=== PATIENT | male | born 1995 | race Caucasian/White ===

== ENCOUNTER 2020-04-02 21:04 | Emergency (ER) | payer OTHER, SELFPAY ==
[2020-04-02 21:08] VITALS: BP 115/79; PULSE 100; RESP 15; TEMP 36.6; O2SAT 98
--- NOTE | 2020-04-02 21:40 | ED.GENADULT ---
HPI - General Adult General Chief complaint: Wound/Laceration Stated complaint: sliced finger Time Seen by Provider: 04/02/20 21:06 Source: patient Mode of arrival: ambulatory Limitations: no limitations History of Present Illness HPI narrative: Patient is a 24-year-old male who presents for evaluation of right ring finger pain that occurred after cutting himself with a sharp edge patient notes aching pain patient is unsure as to his last tetanus shot. Patient notes mild pain denies any radiation of pain or other complaints Related Data Allergies Allergy/AdvReac Type Severity Reaction Status Date / Time No Known Allergies Allergy Verified 04/02/20 21:11 Review of Systems Review of Systems: Narrative: CONSTITUTIONAL: Denies fever, chills, or sweats. SKIN: Positive for laceration MUSCULOSKELETAL: Positive for finger pain NEUROLOGIC: Denies numbness, or weakness. PMFSH Social History Social History (Updated 04/02/20 @ 21:42 by Mychal Odell PA-C) Smoking status: Never smoker Exam Narrative: Exam Narrative: GENERAL: Well-appearing, well-nourished, and in no acute distress. HEAD: Normocephalic, atraumatic. EYES: PERRLA and EOMI. ENT: Nares clear, no rhinorrhea or epistaxis. Mucous membranes moist. EXTREMITIES: Normal range of motion. No edema. SKIN: Warm, dry, no rash. Half centimeter superficial flap laceration over the PIP joint of the right index finger NEURO: No focal deficits. Alert and oriented x3. Neurovascularly intact PSYCH: Normal mood and affect. Course Course Emergency Course: Patient in the room in no distress aware of case findings treatment plan and diagnosis Vital Signs Vital signs: Vital Signs Temperature 97.9 F 04/02/20 21:08 Pulse Rate 100 04/02/20 21:08 Respiratory Rate 15 04/02/20 21:08 Blood Pressure 115/79 04/02/20 21:08 Pulse Oximetry 98 04/02/20 21:08 Temperature 97.9 F 04/02/20 21:08 Pulse Rate 100 04/02/20 21:08 Respiratory Rate 15 04/02/20 21:08 Blood Pressure 115/79 04/02/20 21:08 Pulse Oximetry 98 04/02/20 21:08 Procedures Laceration Laceration 1: Date: 04/02/20 Time: 21:42 Site: upper extremity Size (cm): 0.5 Description: flap Depth: simple, single layer Local Anesthetic: none Pre-repair: wound explored and irrigated ====== Skin Level ====== Skin layer closed with: nathan Number of sutures: 1 ====== Subcutaneous Layer ====== ====== Muscle Layer ====== ====== Tendon Layer ====== Medical Decision Making MDM Narrative Medical decision making narrative: Patients injury or pain is consistent with musculoskeletal etiology. No signs of neurological or vascular compromise on exam. Compartments and tisues are soft without signs of compartment syndrome. Pain is felt appropriate for further evaluation on an outpatient basis. Vital Signs Vital Signs: Vital Signs Temperature 97.9 F 04/02/20 21:08 Pulse Rate 100 04/02/20 21:08 Respiratory Rate 15 04/02/20 21:08 Blood Pressure 115/79 04/02/20 21:08 Pulse Oximetry 98 04/02/20 21:08 Temperature 97.9 F 04/02/20 21:08 Pulse Rate 100 04/02/20 21:08 Respiratory Rate 15 04/02/20 21:08 Blood Pressure 115/79 04/02/20 21:08 Pulse Oximetry 98 04/02/20 21:08 Discharge Plan Discharge Clinical Impression: Laceration Patient Disposition: Home, Self-Care Condition: Stable Instructions: Antibiotic Form, Laceration (ED) Additional Instructions: Keep wound clean and dry. Do not soak, take baths, or swim until wound is completely healed. If any signs of infection such as redness, swelling, increasing pain, drainage of purulent discharge, streaks up your extremity develop, seek medical attention immediately. Followup with your primary care provider in [7] days for suture removal. [] Follow-up/Referrals: PHYSICIAN,CUPOLA OPERATOR INSULATION [Primary Care Provider] - Dionisio
[2020-04-02] MEDS: TETANUS,DIPHTHERIA,AC PERTUSSIS ADULT (0.5 ML) BOOSTRIX IM (21:43)
[2020-04-02 22:13] VITALS: PULSE 74; RESP 16; O2SAT 100
== END 2020-04-02 21:47 | disposition home or self-care (01) ==
PROVIDERS: Emergency Provider Emergency Medicine
DX: S61.214A Laceration without foreign body of right ring finger without damage to nail, initial encounter (principal); W26.9XXA Contact with unspecified sharp object(s), initial encounter; Z23 Encounter for immunization
CPT/HCPCS: 12001; 90471; 90715; 99282

== ENCOUNTER 2020-11-29 12:27 | Outpatient (CLI) | payer OTHER, SELFPAY ==
[2020-11-29 12:57] LABS: Basophils Absolute Auto 0.1 K/mm3 (0.0-0.1); Basophils Percent Auto 1.5 % (0.2-1.2); Eosinophils Absolute Auto 0.3 K/mm3 (0-0.3); Eosinophils Percent Auto 7.5 % (0-4.4); Hematocrit 43.9 % (42.0-52.0); Hemoglobin 15.5 g/dL (14.0-18.0); Immature Granulocyte Absolute 0.01 K/mm3 (0.00-0.031); Immature Granulocyte Percent A 0.2 % (0-0.5); Lymphocytes Absolute Auto 1.39 K/mm3 (0.9-3.2); Lymphocytes Percent Auto 34.7 % (18.3-44.2); Mean Corpuscular HGB Conc 35.3 g/dl (32-36); Mean Corpuscular Hemoglobin 29.8 pg (26-34); Mean Corpuscular Volume 84.3 fl (80-100); Mean Platelet Volume 9.7 fl (7.4-10.4); Monocytes Absolute Auto 0.3 K/mm3 (0.1-0.6); Monocytes Percent Auto 6.7 % (2.6-8.5); Neutrophils Percent Auto 49.4 % (45.5-73.1); Platelet Count Result 224 k/mm3 (150-375); Red Blood Count 5.21 M/mm3 (4.6-6.20); Red Cell Distribution Width 12.2 % (11.5-14.5)
[2020-11-29 13:07] LABS: Alanine Aminotransferase 24 U/L (4-50); Albumin Level 4.3 g/dL (3.5-5.1); Alkaline Phosphatase 36 U/L (38-126); Anion Gap 7 mmol/L (8-16); Aspartate Amino Transferase 28 U/L (17-59); Bilirubin,Total 0.6 mg/dL (0.2-1.3); Blood Urea Nitrogen 13 mg/dL (9-20); Calcium 9.1 mg/dL (8.4-10.2); Carbon Dioxide 28 mmol/L (22-30); Chloride 103 mmol/L (98-107); Cholesterol 154 mg/dL (0-200); Estimated Glomerular Filt Rate > 60; Glucose 90 mg/dL (75-110); HDL Direct 36 mg/dL; Potassium 4.3 mmol/L (3.4-5.0); Sodium 138 mmol/L (137-145); Triglycerides 62 mg/dL (<150)
[2020-11-29 13:18] LABS: LDL Cholesterol Direct 106 mg/dL
[2020-12-04 11:42] LABS: Gliadin AB, IgG 6 Units (<20); Reticulin IgA Negative (Negative); TTG IGA AB 1 U/mL (<4)
== END 2020-11-29 12:28 | disposition home or self-care (01) ==
PROVIDERS: PCP Internal Medicine; Visit Provider Nurse Practitioner
DX: R10.9 Unspecified abdominal pain (principal)
CPT/HCPCS: 36415; 80053; 80061; 83516; 84443; 85025; 86255

== ENCOUNTER 2021-01-10 13:55 | Outpatient (CLI) | payer OTHER, SELFPAY ==
[2021-01-20 23:00] LABS: ANCA Screen Negative (Negative); Myeloperoxidase Ab <1.0 AI (<1.0); Proteinase-3 Ab <1.0 AI (<1.0); S cerevisiae Ab (IgA) 17.6 U (<=20.0); S cerevisiae Ab (IgG) 37.8 U (<=20.0)
== END 2021-01-10 13:56 | disposition home or self-care (01) ==
PROVIDERS: PCP Internal Medicine; Visit Provider Internal Medicine Gastroenterology
DX: R10.31 Right lower quadrant pain (principal)
CPT/HCPCS: 36415; 86021; 86671

== ENCOUNTER → 2021-02-10 01:10 | Outpatient (CLI) | payer OTHER, SELFPAY ==
[2021-02-10 19:15] LABS: SARS-CoV-2 RNA PCR Negative
== END ==
PROVIDERS: PCP Internal Medicine; Visit Provider Internal Medicine Gastroenterology
DX: Z01.812 Encounter for preprocedural laboratory examination (principal); Z20.822 Contact with and (suspected) exposure to COVID-19
CPT/HCPCS: C9803; U0003; U0005

== ENCOUNTER 2021-02-13 01:13 | Day surgery (SDC) | payer OTHER, SELFPAY ==
[2021-02-06 14:10] VITALS: BMI 20.9
--- NOTE | 2021-02-12 11:37 | WPDANESEPPF ---
Anes - Initial Pre Proc Eval Procedure: Operation Date: 02/13/21 12:30 Proposed Procedures p Esophagogastroduodenoscopy & Colonoscopy - León He MD Date/Time: 02/12/21 11:37 Surgeon: León He MD Pre Op Diagnosis: gerd, RLQ pain, change in bowel habits Patient Data Age: 25 Gender: M Height: 1.68 m Weight: 59 kg Allergies Allergy/AdvReac Type Severity Reaction Status Date / Time No Known Allergies Allergy Verified 02/13/21 11:11 Home Medications Medication Instructions Recorded Confirmed Type famotidine 20 mg tablet 20 mg PO DAILY #30 tablet 12/12/20 02/13/21 Rx Patient hx anesthesia problems: none Family hx anesthesia problems: none PMFSH Family History Family History Grandparent Cancer Hypertension Heart problem Sibling Autism Social History Social History Smoking status: Never smoker Alcohol intake: current Alcohol use details: once a month Substance use: current Substance use type: marijuana Other substance usage details: occassionally Living arrangements: with roommate(s) Gender identity (if verbalized by the patient): Male Spiritual care concerns: No Anes - Eval Final PreProcedure Day of Procedure 02/12/21 11:37 Patient weight: normal Heart: regular rate and rhythm Lungs: clear to auscultation and normal air movement Airway: Mallampati scale class II Neurological: alert and oriented Last oral intake: >/= 8 hours ASA classification: II Emergent: no Anesthetic plan: proceed Anesthesia type and monitoring: general GIVS and standard monitoring Informed Consent: The patient's anesthetic plan and its attendant risks and benefits were discussed with the patient/family/POA. Questions were solicited and answers provided to the satisfaction of the patient/family/POA.
[2021-02-13] VITALS (7 sets, daily range): BP systolic 89–108; BP diastolic 40–75; PULSE 52–90; RESP 15–24; TEMP 36.5; O2SAT 96–100; BMI 22.2
[2021-02-13] MEDS: LACTATED RINGERS 1,000 ML 150 ML IV CONT (11:21)
--- NOTE | 2021-02-13 12:23 | PM.HPGS ---
History of Present Illness History of Present Illness Consent: Risks, benefits, and alternatives have been discussed and questions answered. Patient agrees to proceed with procedure. Chief complaint: gerd, RLQ pain, change in bowel habits Narrative: Pedro Mendoza is a 25 year old male With chronic and some refractory gastroesophageal reflux. He also has had abdominal pain for several months with negative CT scan x3. His stools are very loose. Testing for celiac disease was negative Review of Systems Review of Systems: All systems reviewed & are unremarkable except as noted in HPI and below PMFSH Family History Family History Grandparent Cancer Hypertension Heart problem Sibling Autism Social History Social History Smoking status: Never smoker Alcohol intake: current Alcohol use details: once a month Substance use: current Substance use type: marijuana Other substance usage details: occassionally Living arrangements: with roommate(s) Gender identity (if verbalized by the patient): Male Spiritual care concerns: No Meds Home Medications and Allergies Home Medications Medication Instructions Recorded Confirmed Type famotidine 20 mg tablet 20 mg PO DAILY #30 tablet 12/12/20 02/13/21 Rx Allergies Allergy/AdvReac Type Severity Reaction Status Date / Time No Known Allergies Allergy Verified 02/13/21 11:11 Vital Signs Vital Signs - 24 hr 02/13/21 11:12 Temperature 36.5 C Pulse Rate 90 Respiratory Rate 18 Blood Pressure 103/75 Pulse Oximetry 99 Exam Resp: Auscultation: clear to auscultation bilaterally Cardio: Rate: regular rate Rhythm: regular rhythm GI: GI Palp: Yes Soft to palpation and No Tenderness to palpation present (GI) Assessment and Plan Assessment and plan (1) GERD (gastroesophageal reflux disease): Code(s): K21.9 - Gastro-esophageal reflux disease without esophagitis Status: Acute Assessment and Plan: EGD with possible biopsy or dilatation or cautery. (2) Chronic diarrhea: Code(s): K52.9 - Noninfective gastroenteritis and colitis, unspecified Status: Acute Assessment and Plan: Colonoscopy with possible biopsy or polypectomy or cautery or injection of substances.
[2021-02-13] MEDS: BENZOCAINE (*SP) 60 ML SPRAY CAN (HURRICAINE) 1 SPRAY MUCOUS MEM (12:32)
== END 2021-02-13 14:00 | disposition home or self-care (01) ==
PROVIDERS: PCP Internal Medicine; Visit Provider Internal Medicine Gastroenterology
PROC: 0DJ08ZZ Inspection of Upper Intestinal Tract, Via Natural or Artificial Opening Endoscopic (ICD-10-PCS; CPT 43235; principal; 2021-02-13 12:30)
DX: K52.9 Noninfective gastroenteritis and colitis, unspecified (principal); K21.00 Gastro-esophageal reflux disease with esophagitis, without bleeding; F12.90 Cannabis use, unspecified, uncomplicated
CPT/HCPCS: 45380; 43239; 87081; 88305; C9803; J2704; J7120; U0003; U0005

== ENCOUNTER 2025-01-16 15:40 | Outpatient (CLI) | payer OTHER, SELFPAY ==
--- OUTSIDE RECORDS SUMMARY | 2025-01-16 16:51 | XMS_ITS | Clinical Summary ---
Author Organization [facility] Address [address] [place] [address] Care Team Providers Care Wiring Mechanic Name Role Phone Neida Gorman MD Primary Care Provider [phone] Source Comments [facility] [employer],non-owned Affiliates and Associated Physician Practices is amultiple site organization consisting of ambulatory clinics and hospital sitesin [place], [place], [place] and [place]. This disclosure is being madepursuant to the Care Everywhere program and may not contain all information available regarding this patient. Last updated 18.[facility] [employer] Allergies No known active allergies Medications * Be aware that medications may not be up to date on this document. Alwaysverify current medications with the patient. Medication Sig Dispensed Refills Start Date End Date Status albuterol HFA (PROVENTIL;VENTOLIN ;PROAIR) 108 (90 BASE) MCG/ACT inhaler Inhale 2 Puffs by mouth every 4 hours as needed for Wheezing or Cough OK TO SUBSTITUTE ANY BRAND. 1 Inhaler 0 07/24/2016 Active Additional Information Patient not taking.Reported on 08/25/2016 methylphenidate CR 27 MG tablet Take 1 Tab by mouth every morning 30 Tab 09/15/2016 Active Active Problems Problem Noted Date Diagnosed Date ADD (attention deficit disorder) 09/15/2016 Nasal fracture 06/16/2011 Resolved Problems Problem Noted Date Diagnosed Date Resolved Date White coat hypertension 10/05/2013/06/2014 Immunizations Name Administration Dates Next Due INFLUENZA VACCINE, TRIV. (AF LURIA, FLUZONE TRIVALENT; 6MO+) (IIV3) 09/16/2012,08/08/2011 DTaP VACCINE IM (6wk-6yrs) 07/20/2003,,03/13/1998,12/26,1997 FLU VACCINE TRI IIV3 SPLIT P F IM (FLUVIRIN) 09/01/2013 HEP A PEDS 2 DOSE 04/22/2007,01/14/2006 HEP B VACCINE, PED/ADOL 03/13/1998,1997, Human Papilloma Virus [place] valent Vaccine 05/08/2014,10/05/2013,05/09/2013 INFLUENZA VACCINE, QUADR. (F LUZONE; FLULAVAL; FLUARIX; AFLURIA QUADRIVALENT; 6MO+), 0.5 ML (IIV4) 08/06/2015 MENINGOCOCCAL ACWY (MCV4P) VAC IM 05/08/2014, MMR 07/20/2003,12/11/1999 POLIO IPV 07/20/2003, 0,1997,11/28 TDAP (7yrs+) 05/22/2008 VARICELLA 04/22/2007,01/28/2003 Family History * Patient is adopted Medical History Relation Name Comments Autistic Spectrum Disorder Brother t win brother, lives with another family Relation Name Status Comments Brother Social History Tobacco Use Types Packs/Day Years Used Date Smoking Tobacco: Never Smokeless Tobacco: Never Alcohol Use Standard Drinks/Week Comments No 0 (1 standard drink = 0.6 oz pur e alcohol) Sex and Gender Information Value Date Recorded Sex Assigned at Not on file Gender Identity Not on file Sexual Orientation Not on file Last Filed Vital Signs Vital Sign Reading Time Taken Comments Blood Pressure 132/82 09/15/2016 1:05 PM DEPOSITION OPERATOR Pulse 98 07/20/2016 10:41 AM CDT Temperature 36.8 C (98.3 F) 08/25/2016 2:06 PM DEPOSITION OPERATOR Respiratory Rate 16 06/16/2011 7:10 PM CDT Oxygen Saturation 97% 07/20/2016 10:41 AM CDT Inhaled Oxygen Concentration - - Weight 61.3 kg (135 lb 3.2 oz) 09/15/2016 1:05 P M DEPOSITION OPERATOR Height 168.3 cm (5' 6.25 ) 09/15/2016 1:05 PM CS T Body Mass Index 21.66 09/15/2016 1:05 PM DEPOSITION OPERATOR Plan of Treatment Health Maintenance Due Date Last Done Comments HIV SCREENING 2012 HEPATITIS C SCREENING 08/22/2015 DTAP/TDAP/TD VACCINES (7 - Td or Tdap) 05/22/2018 05/22/2008, 07/20/2003, 12/11/1999, Additional history exists COVID-19 VACCINE ( season) 2024 DEPRESSION SCREENING 10/11/2024 INFLUENZA VACCINE (Season Ended) 2025 08/06/2015, 09/01/2013, 09/16/2012, Additional history exists ZOSTER VACCINE (1 of 2) 2047 HEPATITIS B VACCINE Completed 03/13/1998, 1997, 1997 HPV VACCINE Completed 05/08/2014, 09/11, 05/09/2013 MENINGOCOCCAL GROUPS A/C/Y/W VACCINE Completed 05/08/2014, 05/09/2010 HIB VACCINE Aged Out No longer eligi ble based on patient's age to complete this topic MENINGOCOCCAL (Group B) VACCINE SHARED DECISION-MAKING Aged Out No longer eligible based on patient's age to complete this topic PNEUMOCOCCAL VACCINE Aged Out No long er eligible based on patient's age to complete this topic Goals Goal Patient Goal Type Associated Problems Recent Progress Patient-Stated? Author Use safety retraint in car Lifestyle On track( 015 9:53 AM CDT) Cee Apple, ALEX Care Teams Wiring Mechanic Relationship Specialty Start Date End Date Neida Gorman MD PCP - General 02/28/21
--- NOTE | 2025-01-26 10:58 | WPDHOLTEREM ---
Holter/Event Monitor Holter/Event Monitor Date of procedure: 01/16/25 Holter/Event Procedure: 3-7 Day Holter Monitor Indications: Tachycardia Conclusion: 1. 3 days holter monitor on 01/16/25. 2. Underlying rhythm is sinus rhythm. HR range 53-145 bpm; average HR 85 bpm. 3. There are rare premature supraventricular complexes. No supraventricular tachycardia. 4. There are rare premature ventricular complexes. No ventricular tachycardia. 5. No significant pauses greater than 3 seconds. 6. Patient reports 1 episode of symptom of chest pain which demonstrates sinus rhythm at 81 bpm.
== END 2025-01-16 15:41 | disposition home or self-care (01) ==
PROVIDERS: PCP Internal Medicine; Visit Provider Nurse Practitioner
DX: I49.1 Atrial premature depolarization (principal); I49.3 Ventricular premature depolarization; R00.0 Tachycardia, unspecified; R00.2 Palpitations
CPT/HCPCS: 93242